=== PATIENT | male | born 1990 | race Caucasian/White ===

== ENCOUNTER 2016-09-17 22:32 | Emergency (ER) | payer SELFPAY ==
[~2016-09-17] VITALS: Ht 180.3 cm; Wt 113.0 kg
[2016-09-17] MEDS ORDERED: IBUPROFEN 600MG TABLET PO ONE (23:45)
[2016-09-17] MEDS ORDERED: TETANUS, DIPHTHERIA, PERTUSSIS VAC/PF 0.5ML (>7YR OLD) IM ONE (23:45)
[2016-09-18 00:30] VITALS: BP 140/72
== END 2016-09-18 02:23 | disposition home or self-care (01) ==
LOC: ER 22:32
DX: S02.40EA Zygomatic fracture, right side, initial encounter for closed fracture (principal); X58.XXXA Exposure to other specified factors, initial encounter; Y93.89 Activity, other specified; Y92.89 Other specified places as the place of occurrence of the external cause; Y99.8 Other external cause status
CPT/HCPCS: 70486; 90471; 90715; 99284; Z7610